=== PATIENT | female | born 1960 | race Caucasian/White ===

== ENCOUNTER → 2016-06-24 | Outpatient (CLI) | payer OTHER ==
[~2016-06-24] MED LIST: BACTRIM DS TAB1 EACH PO; CIPRO500 MG PO; CLARITIN-D 121 EACH PO; DAKIN'S SOLUTI500 ML EXT; EFFEXOR XR 150150 MG PO; FISH OIL CONCE1 EAC1 PO; FLEXERIL 10 MG10 MG PO; K-DUR TAB 10 M10 MEQ PO; LASIX80 MG PO; MAGNESIUM 300300 MG PO; METFORMIN HCL1000 MG PO; METHYLPHENIDATE20 M1 PO; NEURONTIN 300300 MG PO; NIACIN500 M1 PO; PHENERGAN 25 MG25 M1 PO; POTASSIUM 25 M25 MEQ PO; PROZAC40 MG PO; REQUIP1 MG PO; SPIRONOLACTONE25 MG PO; TRADJENTA5 MG PO; VITAMIN B-1000 MCG/M IM; VITAMIN C 500500 MG PO; VITAMIN D50000 UNIT PO; ZANTAC150 MG PO; ZYLOPRIM 100 M100 MG PO
== END ==
LOC: OPSV 17:07
DX: L97.509 Non-pressure chronic ulcer of other part of unspecified foot with unspecified severity (principal); Z88.0 Allergy status to penicillin; Z88.1 Allergy status to other antibiotic agents
CPT/HCPCS: G0463

== ENCOUNTER → 2016-08-11 | Outpatient (CLI) | payer OTHER | LOC: KOH-I 13:12 | DX: M86.171 Other acute osteomyelitis, right ankle and foot (principal); R60.0 Localized edema | CPT/HCPCS: 73718 ==

== ENCOUNTER → 2020-04-22 | Outpatient (CLI) | payer BC, OTHER ==
[~2020-04-22] MED LIST changes: +ASPIRIN 325MG325 MG PO; +BENADRYL 25MG C25 MG PO; +CLEOCIN HCL300 MG PO; +CLINDAMYCIN HC300 MG PO; +COZAAR25 MG PO; +CYANOCOBAL1000 MCG/1 INJ; +FOSAMAX 10 MG T10 MG PO; +IBUPROFEN800 MG PO; +LEVAQUIN500 MG PO; +LEVAQUIN750 MG PO; +LORTAB 5-325 M1 EACH PO; +LOVENOX40 MG/0.4 SQ; -MAGNESIUM 300300 MG PO; +MAGOX 400400 MG PO; -METHYLPHENIDATE20 M1 PO; +MIACALCIN 2200 IU/ML; +PERCOCET 5/325 T1 EA PO; +POTASSIUM CHLO10 MEQ PO; +RITALIN20 MG PO; +TYLENOL 8 HOUR650 MG PO; +ULORIC 40 MG TA40 MG PO; +ULTRAM50 MG PO; +VENTOLIN HFA 66.7 GM INH; +VITAMIN B-121000 MC3 SQ; +VITAMIN C500 M1 PO; +VITAMIN D250000 UNIT PO; +ZANTAC300 MG PO
== END ==
LOC: EXRD 14:34
DX: M81.0 Age-related osteoporosis without current pathological fracture (principal)
CPT/HCPCS: 77080

== ENCOUNTER → 2020-04-22 | Outpatient (CLI) | payer BC, OTHER ==
[2020-04-23 10:14] LABS: HBSAG SCREEN Negative (Negative); HCV AB 0.1 (0.0-0.9); HEP B CORE AB, TOT Negative (Negative)
[2020-04-26 16:08] LABS: QUANTIFERON MITOGEN VALUE >10.00 IU/mL (.); QUANTIFERON NIL VALUE 0.05 IU/mL (.); QUANTIFERON TB1 AG VALUE 0.06 IU/mL (.); QUANTIFERON TB2 AG VALUE 0.05 IU/mL (.); QUANTIFERON-TB GOLD PLUS Negative (Negative)
[2020-04-29 14:12] LABS: HLA B 27 DISEASE ASSOCIATION Negative (.)
== END ==
LOC: LAB 10:50
PROVIDERS: Internal Medicine
DX: D89.89 Other specified disorders involving the immune mechanism, not elsewhere classified (principal); M25.50 Pain in unspecified joint; M10.9 Gout, unspecified; M45.9 Ankylosing spondylitis of unspecified sites in spine; M06.4 Inflammatory polyarthropathy; Z79.899 Other long term (current) drug therapy
CPT/HCPCS: 36415; 72202; 81374; 84550; 86704; 86803; 87340

== ENCOUNTER → 2020-07-02 | Outpatient (CLI) | payer BC, OTHER | LOC: KOH-I 09:10 | DX: M14.672 Charcot's joint, left ankle and foot (principal); M14.671 Charcot's joint, right ankle and foot | CPT/HCPCS: 73630 ==

== ENCOUNTER → 2020-08-24 | Outpatient (CLI) | payer BC, OTHER | LOC: KOH-I 15:32 | DX: M14.672 Charcot's joint, left ankle and foot (principal); M14.671 Charcot's joint, right ankle and foot; M21.962 Unspecified acquired deformity of left lower leg; M21.961 Unspecified acquired deformity of right lower leg; Z98.1 Arthrodesis status | CPT/HCPCS: 73630 ==

== ENCOUNTER → 2020-09-28 | Outpatient (CLI) | payer BC, OTHER | LOC: KOH-I 13:27 | DX: M14.672 Charcot's joint, left ankle and foot (principal); M14.671 Charcot's joint, right ankle and foot; Z89.421 Acquired absence of other right toe(s) | CPT/HCPCS: 73630 ==

== ENCOUNTER → 2020-11-09 | Outpatient (CLI) | payer BC | LOC: KOH-I 13:58 | DX: M79.671 Pain in right foot (principal); M79.672 Pain in left foot | CPT/HCPCS: 73630 ==

== ENCOUNTER → 2021-01-18 | Outpatient (CLI) | payer BC | LOC: KOH-I 14:23 | DX: M79.672 Pain in left foot (principal); M79.671 Pain in right foot | CPT/HCPCS: 73630 ==

== ENCOUNTER → 2021-04-26 | Outpatient (CLI) | payer BC | LOC: KOH-I 10:16 | DX: M79.671 Pain in right foot (principal); M79.672 Pain in left foot; M19.071 Primary osteoarthritis, right ankle and foot; M19.072 Primary osteoarthritis, left ankle and foot | CPT/HCPCS: 73630 ==

== ENCOUNTER → 2021-11-01 | Outpatient (CLI) | payer BC | LOC: KOH-I 12:47 | DX: M79.672 Pain in left foot (principal); M79.671 Pain in right foot | CPT/HCPCS: 73630 ==